=== PATIENT | male | born 1995 ===

== ENCOUNTER 2020-09-06 21:53 | Emergency (ER) | payer BC, OTHER ==
[2020-09-06] MEDS ORDERED: fentaNYL 100 MCG/2 ML SDV IVPUSH ONE (22:40)
[2020-09-06] MEDS ORDERED: Ondansetron 4 MG/2 ML SDV IVPUSH ONE (22:40)
[2020-09-06] MEDS ORDERED: Iopamidol 612 MG/ML 100 ML Bottle IVPUSH ONE (22:47)
[2020-09-06 23:13] LABS: ANION GAP 18.5 mEq/L (7-13); CHLORIDE,CL 102 mmol/L (98-107); SODIUM,NA 141 mmol/L (136-145)
--- NOTE | 2020-09-07 00:31 | CT ---
PROCEDURE INFORMATION: Exam: CT Abdomen With Contrast Exam date and time: 09/06/2020 11:52 PM Age: 25 years old Clinical indication: Other: Luq pain; Patient HX: [place] in June; Additional info: Luq pain with swelling after coughing, TECHNIQUE: Imaging protocol: Computed tomography images of the abdomen with intravenous contrast. Radiation optimization: All CT scans at this facility use at least one of these dose optimization techniques: automated exposure control; mA and/or kV adjustment per patient size (includes targeted exams where dose is matched to clinical indication); or iterative reconstruction. Contrast material: [id number]; Contrast volume: 100 ml; Contrast route: INTRAVENOUS (IV); COMPARISON: No relevant prior studies available. FINDINGS: Liver: There is mild fatty liver replacement. Gallbladder and bile ducts: No calcified gallstones. No ductal dilation. Pancreas: The pancreatic parenchyma is normal in bulk and sharply marginated. Duct is not dilated. No calcifications, masses, or abnormal fluid collections. Spleen: Spleen is normal in size. No mass or fluid collection. Adrenals: There are no adrenal masses. Kidneys and ureters: Normal in parenchymal bulk. No hydronephrosis or asymmetric perinephric stranding. No solid masses. No stones. Stomach and bowel: Diverticula of the visible large intestine. Stomach is decompressed. Thickening of gastric wall could be due to nondistention, gastritis, or other. Appendix: The appendix is partially seen. Visualized portion is normal. Intraperitoneal space: No pneumoperitoneum, ascites, stranding of fat, or mass. Lymph nodes: No enlarged lymph nodes. Vasculature: Unremarkable. No abdominal aortic aneurysm. Bones/joints: Age appropriate.No acute fracture. No dislocation. No suspicious lytic or osteosclerotic lesions. Soft tissues: No hernia, suspicious mass, or concerning soft tissue gas. IMPRESSION: Thickening of gastric wall could be due to nondistention, gastritis, or other.
--- NOTE | 2020-09-07 00:45 | EDM.PDOC ---
ED HPI GENERAL MEDICAL PROBLEM - General Chief Complaint: Abdominal Pain Stated Complaint: PAIN UPPER LEFT ABDOMEN Time Seen by Provider: 09/06/20 22:25 Source of Information: Reports: Patient, RN History Limitations: Reports: No Limitations - History of Present Illness INITIAL COMMENTS - FREE TEXT/NARRATIVE: ED with c/o severe pain LUQ after coughing spell, felt something pop. COVID + in June. Denies chronic cough, isolated incident today. No fever or chills. No prior nasea or vomiting. Left upper abd. pain. Pain Score (Numeric/FACES): 3 - Related Data Allergies Allergy/AdvReac Type Severity Reaction Status Date / Time azithromycin [From Zithromax] AdvReac Other Verified 09/06/20 22:26 Home Meds: Home Meds . [No Known Home Meds] 06/16/20 [History] Past Medical History - Past Health History Medical/Surgical History: Denies Medical/Surgical History Social & Family History - Family History Family Medical History: No Pertinent Family History - Tobacco Use Tobacco Use Status *Q: Never Tobacco User - Caffeine Use Caffeine Use: Reports: Coffee, Energy Drinks, Soda - Recreational Drug Use Recreational Drug Use: No ED ROS GENERAL - Review of Systems Review Of Systems: Comprehensive ROS is negative, except as noted in HPI. ED EXAM, GI/ABD - Physical Exam Exam: See Below Exam Limited By: No Limitations General Appearance: Alert, Moderate Distress Ears: Normal External Exam, Hearing Grossly Normal Nose: No: Nasal Drainage Throat/Mouth: Normal Voice, No Airway Compromise Head: Atraumatic, Normocephalic Neck: Normal Inspection, Full Range of Motion Respiratory/Chest: Lungs Clear, Normal Breath Sounds Cardiovascular: Normal Peripheral Pulses, Regular Rate, Rhythm GI/Abdominal Exam: Normal Bowel Sounds, Soft, Distended (10cm distended area LUQ ), Tender (LUQ) Back Exam: Normal Inspection, Full Range of Motion Extremities: Normal Range of Motion Neurological: Alert, Oriented, Normal Cognition, Normal Gait Psychiatric: Normal Affect, Normal Mood Skin Exam: Warm, Dry, Intact, Normal Color Course - Vital Signs Last Recorded V/S: Last Vital Signs Temp 98 F 09/06/20 23:56 Pulse 78 09/06/20 23:56 Resp 16 09/06/20 23:56 BP 147/65 H 09/06/20 23:56 Pulse Ox 100 09/06/20 23:56 - Orders/Labs/Meds Labs: Laboratory Tests 09/06/20 09/06/20 Range/Units 22:46 22:46 WBC 7.2 (5.0-10.0) 10^3/uL RBC 4.63 (4.6-6.2) 10^6/uL Hgb 15.2 (14.0-18.0) g/dL Hct 42.6 (40.0-54.0) % MCV 92.0 (80-100) fL MCH 32.8 (27.0-34.0) pg MCHC 35.7 H (33.0-35.0) g/dL Plt Count 236 (150-450) 10^3/uL Neut % (Auto) 58.8 (42.2-75.2) % Lymph % (Auto) 28.9 (20.5-50.1) % [place] % (Auto) 9.5 H (2-8) % Eos % (Auto) 2.4 (1.0-3.0) % Baso % (Auto) 0.4 (0.0-1.0) % Sodium 141 (136-145) mmol/L Potassium 3.5 (3.5-5.1) mmol/L Chloride 102 (98-107) mmol/L Carbon Dioxide 24 (21-32) mmol/L Anion Gap 18.5 H (7-13) mEq/L BUN 15 (7-18) mg/dL Creatinine 0.99 (0.70-1.30) mg/dL Est Cr Clr Drug Dosing 119.37 mL/min Estimated GFR (MDRD) > 60 BUN/Creatinine Ratio 15.2 (No establ ref range) Glucose 90 (74-99) mg/dL Calcium 8.5 (8.5-10.1) mg/dL Total Bilirubin 0.5 (0.2-1.0) mg/dL AST 16 (15-37) U/L ALT 53 (16-63) U/L Alkaline Phosphatase 76 (46-116) U/L Total Protein 7.8 (6.4-8.2) g/dL Albumin 3.9 (3.4-5.0) g/dL Globulin 3.9 Albumin/Globulin Ratio 1.0 Meds: Medications Discontinued Medications Generic Name Dose Route Start Last Admin Trade Name Freq PRN Reason Stop Dose Admin Fentanyl 50 mcg 09/06/20 22:40 09/06/20 22:52 Sublimaze IVPUSH 09/06/20 22:41 50 mcg ONETIME ONE Administration Iopamidol 100 ml 09/06/20 22:47 09/06/20 23:59 Isovue-300 (61%) IVPUSH 09/06/20 22:48 100 ml ONETIME ONE Administration Ondansetron HCl 4 mg 09/06/20 22:40 09/06/20 22:51 Zofran IVPUSH 09/06/20 22:41 4 mg ONETIME ONE Administration Departure - Departure Time of Disposition: 00:44 Disposition: Home, Self-Care 01 Condition: Good Clinical Impression: Abdominal pain Qualifiers: Abdominal location: left upper quadrant Qualified Code(s): R10.12 - Left upper quadrant pain - Discharge Information *PRESCRIPTION DRUG MONITORING PROGRAM REVIEWED*: No *COPY OF PRESCRIPTION DRUG MONITORING REPORT IN PATIENT [place]: No Instructions: Abdominal Pain, Adult, [id number] Forms: ED Department Discharge Additional Instructions: light diet tylenol 650mg every 4 hours as needed for discomfort clinic folllow up next week if not improving Sepsis Event Note (ED) - Evaluation Sepsis Screening Result: No Definite Risk - Focused Exam Vital Signs: Vital Signs Temp Pulse Resp BP Pulse Ox 09/06/20 23:56 98 F 78 16 147/65 H 100 09/06/20 22:37 159/80 H 09/06/20 22:18 98.5 F 93 16 168/97 H 98
== END 2020-09-07 00:51 | disposition home or self-care (01) ==
LOC: DL.ED 21:53
DX: R10.12 Left upper quadrant pain (principal); Z88.1 Allergy status to other antibiotic agents
CPT/HCPCS: 36415; 74160; 80053; 85025; 96374; 99283; 99284-25; J2405; J3010; Q9967

== ENCOUNTER 2023-04-23 01:01 | Emergency (ER) | payer OTHER ==
[~2023-04-23 01:01] MED LIST: Iopamidol 612 MG/ML 100 ML Bottle IVPUSH ONE
[2023-04-23] MEDS ORDERED: Acetaminophen 500 MG Tab PO ONE ×2 (01:02→03:55)
[2023-04-23] MEDS ORDERED: fentaNYL 100 MCG/2 ML SDV IV ONE (01:02)
[2023-04-23] MEDS ORDERED: Lactated Ringers 1,000 ML IV ONE (01:02)
[2023-04-23] MEDS ORDERED: Ondansetron 4 MG/2 ML SDV IV ONE (01:02)
[2023-04-23 01:18] LABS: BASOPHILS PERCENT AUTO 0.3 % (0.0-1.0); EOSINOPHILS PERCENT AUTO 1.7 % (1.0-3.0); LYMPHOCYTES PERCENT AUTO 36.4 % (20.5-50.1); MEAN CORPUSCULAR HEMOGLOBIN 31.4 pg (27.0-34.0); MEAN CORPUSCULAR HGB CONC 34.9 g/dL (33.0-35.0); MEAN CORPUSCULAR VOLUME 90.1 fL (80-100); MONOCYTES PERCENT AUTO 5.3 % (2-8); NEUTROPHILS PERCENT AUTO 56.3 % (42.2-75.2); PLATELET COUNT,PLT 237 10^3/uL (150-450); RED BLOOD CELL COUNT 4.77 10^6/uL (4.6-6.2); WHITE BLOOD CELL COUNT,WBC 6.6 10^3/uL (5.0-10.0)
[2023-04-23 01:21] LABS: APPEARANCE,URINE CLEAR (CLEAR); BILIRUBIN,URINE NEGATIVE (NEGATIVE); COLOR,URINE YELLOW (YELLOW); GLUCOSE,URINE >=1000 (NEGATIVE); KETONES,URINE NEGATIVE (NEGATIVE); LEUKOCYTE ESTERASE,URINE NEGATIVE (NEGATIVE); NITRITE,URINE NEGATIVE (NEGATIVE); OCCULT BLOOD,URINE SMALL (NEGATIVE); PROTEIN,URINE 30 (NEGATIVE); UROBILINOGEN,URINE 0.2 mg/dL (0.2-1.0)
[2023-04-23] MEDS ORDERED: fentaNYL 100 MCG/2 ML SDV IVPUSH ONE (01:37)
[2023-04-23] MEDS ORDERED: Ondansetron 4 MG/2 ML SDV IVPUSH ONE (01:37)
[2023-04-23 01:38] LABS: AMORPHOUS SEDIMENT,URINE RARE /HPF (NOT SEEN); BACTERIA,URINE RARE /HPF (0-FEW/HPF); EPITHELIAL CELLS,URINE RARE /HPF (NOT SEEN); METHAMPHETAMINES,URINE NEGATIVE (NEGATIVE); MUCUS,URINE RARE /LPF (NOT SEEN); RBC,URINE 0-5 /HPF (0-5); WBC,URINE 0-5 /HPF (0-5/HPF)
[2023-04-23] MEDS ORDERED: Bacitracin Oint 1 GM U/D Packet TOP ONE (01:38)
[2023-04-23] MEDS ORDERED: Lidocaine 2% with EPINEPHrine 1:200,000 20 ML SDV INJECT ONE (01:38)
[2023-04-23 01:39] LABS: AMPHETAMINES,URINE NEGATIVE (NEGATIVE); BARBITURATES,URINE NEGATIVE (NEGATIVE); BENZODIAZEPINE,URINE NEGATIVE (NEGATIVE); MDMA (ECSTASY), URINE NEGATIVE (NEGATIVE); METHADONE,URINE NEGATIVE (NEGATIVE); OPIATES,URINE NEGATIVE (NEGATIVE); OXYCODONE,URINE NEGATIVE (NEGATIVE); PHENCYCLIDINE,URINE NEGATIVE (NEGATIVE); TCA,URINE NEGATIVE (NEGATIVE)
[2023-04-23 01:39] LABS: A/G RATIO 0.9; ALANINE AMINOTRANSFERASE,ALT 195 U/L (16-63); ALBUMIN 3.5 g/dL (3.4-5.0); ALKALINE PHOSPHATASE 161 U/L (46-116); AMYLASE 25 U/L (25-115); ANION GAP 19.5 mEq/L (7-13); ASPARTATE AMNIOTRANSFERASE,AST 186 U/L (15-37); BILIRUBIN TOTAL 0.4 mg/dL (0.2-1.0); BLOOD UREA NITROGEN,BUN 10 mg/dL (7-18); BUN/CREATININE RATIO 8.8 (No establ ref range); CALCIUM 8.4 mg/dL (8.5-10.1); CARBON DIOXIDE,CO2 21 mmol/L (21-32); CHLORIDE,CL 100 mmol/L (98-107); CREATININE 1.14 mg/dL (0.70-1.30); LIPASE 92 U/L (16-77); POTASSIUM,K 3.5 mmol/L (3.5-5.1); PROTEIN TOTAL,TP 7.3 g/dL (6.4-8.2); SODIUM,NA 137 mmol/L (136-145)
[2023-04-23 01:43] LABS: ESTIMATED GFR 89 mL/min (>=60); ETHANOL BLOOD MEDICAL 316 mg/dL (0); GLUCOSE RANDOM 482 mg/dL (70-99)
[2023-04-23] MEDS ORDERED: Mupirocin Oint 22 GM Tube TOP ONE (03:28)
== END 2023-04-23 04:12 ==
LOC: DL.ED 01:01
DX: S06.0X9A Concussion with loss of consciousness of unspecified duration, initial encounter (principal); S02.2XXA Fracture of nasal bones, initial encounter for closed fracture; S01.421A Laceration with foreign body of right cheek and temporomandibular area, initial encounter; S00.81XA Abrasion of other part of head, initial encounter; F10.920 Alcohol use, unspecified with intoxication, uncomplicated; Z88.1 Allergy status to other antibiotic agents; V89.2XXA Person injured in unspecified motor-vehicle accident, traffic, initial encounter
CPT/HCPCS: 12011; 36415; 70450; 70486; 71260; 72125; 74177; 80053; 80305; 80307; 81001; 82150; 82947; 83690; 85025; 86850; 86900; 86901; 93010; 96374; 96375; 99284; 99285; A9270; J2405; J3010; J7120; Q9967